=== PATIENT | male | born 1970 | race Caucasian/White ===

== ENCOUNTER 2016-07-31 00:22 | Inpatient (IN) | payer OTHER ==
[~2016-07-31] VITALS: Ht 185.4 cm; Wt 112.6 kg
[2016-07-31] VITALS (10 sets, daily range): BP systolic 121–149; BP diastolic 60–701
--- NOTE | ~2016-07-31 | S ---
[facility] [place] [address] SURGICAL PATH RPT PROCEDURE Name: REYNALDO ALVARADO Room #: 417-I [facility] IN M.R.#: [id number] Admission: 07/31/16 Date of : 68 Discharge: 08/04/16 Report #: [id number] Path Case #: [id number] PATHOLOGY REPORT COLLECTION DATE: 07/31/2016 RECEIVED DATE: 08/01/2016 SUBMITTING PHYS: Dr. Emmett Rader OTHER PHYS: SPECIMEN(S) RECEIVED: A.Ileum * * * * * * * * * * * * FINAL DIAGNOSIS: "Ileum", resection: - Small bowel mucosa, submucosa and muscular wall with transmural reactive changes including edema, mild acute and chronic inflammation, vascular congestion and mesothelial reaction with focal fresh hemorrhage present. - History of incarcerated inguinal hernia. PATHOLOGIST: Leyda Kuhn M.D. REPORT ELECTRONICALLY SIGNED BY: Leyda Kuhn M.D. DATE/TIME: 08/04/2016 23:03 * * * * * * * * * * * * GROSS PATHOLOGY: The specimen is received in formalin labeled "Reynaldo Alvarado, ileum, stitch leung proximal". Received is an oriented segment of small bowel measuring 16.4 cm in length by 2.4 cm in diameter with a suture placed at one margin designating this as the proximal aspect. Both margins are stapled closed. The serosal surface is eubanks-loza to dusky eubanks-loza brown and slightly shaggy in appearance. The attached mesenteric fat measures up to 2.6 cm in thickness. The specimen is opened along the antimesenteric line to reveal pale loza to loza-brown, slightly granular-appearing mucosa with minimal folding and displaying a slight amount of edema. No distinct nodules or lesions are noted grossly. Sectioning through the attached mesenteric fat reveals no readily identifiable lymph nodes. 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 (CAA; 08/03/2016) [address] [address] SURGICAL PATH RPT PROCEDURE Name: REYNALDO ALVARADO Room #: 417-I [facility] IN .R.#: [id number] Admission: 07/31/16 Date of : 68 Discharge: 08/04/16 Report #: [id number] Path Case #: [id number] CLINICAL HISTORY: Incarcerated right inguinal hernia INITIAL CPT CODE(S): A; 48224 Professional services performed by [facility] at [address], [place] [address] Technical services performed by [facility] at [address] [place] [address], [address] [address]. [facility] [address] [place] [address] PHONE: [phone] DIRECTOR: Mike Macias M.D. * * * END OF REPORT * * *
--- NOTE | ~2016-07-31 | H ---
[facility] [place] [address] HISTORY AND PHYSICAL Name: OHREYNALDO Yasemin Room #: 417-I ADM IN .R.#: [id number] Admission: 07/31/16 Attend Phys: Emmett Rader MD, F Discharge: Date of : 68 Report #: [id number] THIS REPORT FOR: //name// CC: FRANK physician/PCP Emmett Rader DATE OF SERVICE: 07/31/2016 CHIEF COMPLAINT: Right groin pain. HISTORY OF PRESENT ILLNESS: This is a 45-year-old male patient who has had difficulty with right groin pain with coughing/straining of the abdomen for quite some time. He was unaware that a right inguinal hernia was present. Yesterday at around 2:00 or 3:00 in the afternoon, he had coughed or sneezed while at rest and developed acute right groin pain. He passed flatus a few hours later, but has not passed a bowel movement or flatus since that time. The bulge in his right groin has not been able to be reduced. He had been seen in the Emergency Room where this was attempted and was unsuccessful. CT of the abdomen and pelvis revealed a large right inguinal hernia with a small-bowel obstruction. Small bowel loops were seen in the hernia with moderate inflammatory changes. There was no evidence for intraabdominal abscess or free air. The patient's white blood cell count was elevated; however, his lactate was normal. The patient reports mild nausea, but no emesis. PAST MEDICAL HISTORY: Denies. PAST SURGICAL HISTORY: Orthopedic operations on his right leg and shoulder. The patient has also undergone an umbilical hernia repair with mesh 3 to 4 years ago. MEDICATIONS: No routine medications at home. ALLERGIES: PENICILLIN. FAMILY HISTORY: Reviewed and noncontributory to this hospitalization. SOCIAL HISTORY: The patient denies use of alcohol, reports marijuana use. 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 REVIEW OF SYSTEMS: As per history of present illness. GENERAL: In addition, the patient denies fever or chills. Denies unintentional weight loss. HEENT: Denies changes in taste, vision, hearing or smell. RESPIRATORY: Denies shortness of breath or asthma. CARDIOVASCULAR: Denies chest pain or palpitations. GASTROINTESTINAL: As per history of present illness. Denies bright red blood [address] [address] HISTORY AND PHYSICAL Name: REYNALDO CASIANO Room #: 417-I [facility] IN [facility].#: [id number] Admission: 07/31/16 Attend Phys: Emmett Rader MD, F Discharge: Date of : 68 Report #: [id number] per rectum. GENITOURINARY: Denies dysuria, urgency, increased urinary frequency or hematuria. MUSCULOSKELETAL: Denies myalgia or arthralgia. Has right lower extremity pain. SKIN AND INTEGUMENTARY: Denies new skin lesions, rashes, or moles. ENDOCRINE: Denies polydipsia or polyuria. NEUROLOGIC: Denies headaches, numbness, or tingling. All other review of systems is negative. PHYSICAL EXAMINATION: VITAL SIGNS: Temperature 36.8, blood pressure 131/60, pulse 79, respirations 16. GENERAL: This is a 45-year-old male patient in no acute distress. HEENT: Atraumatic and normocephalic. NECK: Supple, no appreciable lymphadenopathy. CHEST: Clear. CARDIOVASCULAR: Regular rate and rhythm. ABDOMEN: Soft and slightly distended. A right groin bulge is present that is nonreducible. There is no overlying erythema or edema. He has tenderness to palpation with exam. There was no palpable evidence for a left inguinal hernia. There is no umbilical hernia present. EXTREMITIES: No clubbing or cyanosis; obvious distal right lower extremity previous trauma. NEUROLOGIC: Cranial nerves 2-12 grossly intact. PSYCHIATRIC: Normal mood and affect. SKIN AND INTEGUMENTARY: No acute inflammatory changes, rashes or lesions are present. LABORATORY STUDIES: CBC from earlier this morning shows a white blood cell count of 16.6, hemoglobin 14.7, hematocrit 44.5 and platelets 411. Electrolytes showed sodium of 133, potassium 3.6, chloride 99, CO2 of 27, BUN 14, creatinine 0.8 and glucose 121 with normal liver function tests. Lipase was low. Urinalysis showed trace ketones and 2+ blood. His urobilinogen was greater than 8. RADIOLOGIC STUDIES: CT findings are as noted above. IMPRESSION AND PLAN: This is a 45-year-old reportedly otherwise healthy male patient with an incarcerated right groin hernia with possible strangulation of bowel. His white blood cell count was elevated. However, his white blood cell count was normal. I am unable to reduce the hernia at the bedside despite maneuvers to relax the patient. We discussed the pathophysiology and natural history of inguinal hernias as well as the treatment alternatives and surgical options. The patient will need relatively urgent operative intervention. We will plan for the laparoscopic approach with possible need for bowel resection, possible conversion to an open procedure. The risks, benefits, and expectations [facility] [address] [place] [address] HISTORY AND PHYSICAL Name: REYNALDO CASIANO Room #: 417-I ADM IN .R.#: [id number] Admission: 07/31/16 Attend Phys: Emmett Rader MD, F Discharge: Date of : 68 Report #: [id number] of the operation were discussed in detail with the patient. He expressed understanding and wishes to proceed. He will be taken to the operating room soon. <ELECTRONICALLY SIGNED> By: Emmett Rader MD, FACS 07/31/16 2305 0740 0824 Emmett Rader MD, FACS /nt
--- NOTE | ~2016-07-31 | EKG ---
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 : 1970 Requested By: Prince Tyler Order Number: [id number] MD: Richard Ahsford Measurements Intervals [place] Rate: 86 P: 67 AK: 146 QRS: 49 QRSD: 89 T: 12 QT: 375 QTc: 449 Interpretive Statements Sinus rhythm Probable left atrial enlargement Probable left ventricular hypertrophy Baseline wander in lead(s) I,V1,V2,V3,V4,V5,V6 No previous ECG available for comparison Electronically Signed On 08-04-2016 15:11:16 CDT by Richard Ashford [email or web address] <ELECTRONICALLY SIGNED> By: Richard Ashford MD 08/04/16 1511 1221 1221 Richard Ashford MD /EPI
--- NOTE | ~2016-07-31 | O ---
[facility] [place] [address] OPERATIVE REPORT Name: REYNALDO CASIANO Room #: 417-I [facility] IN M.R.#: [id number] Admission: 07/31/16 Attend Phys: Emmett Rader MD, F Discharge: 08/04/16 Date of : 68 Report #: [id number] THIS REPORT FOR: //name// CC: FRANK physician/PCP Emmett Rader DATE OF SERVICE: 07/31/2016 SURGEON: Emmett Rader MD LARRY CAR OPERATOR: PAM Mills. PREOPERATIVE DIAGNOSES: 1. Incarcerated right groin hernia, possible strangulation. 2. Hepatitis C. POSTOPERATIVE DIAGNOSES: 1. Strangulated indirect right inguinal hernia (strangulated small bowel). 2. Hepatitis C. PROCEDURES: 1. Diagnostic laparoscopy with conversion to open for repair of a strangulated right inguinal hernia with Surgimesh plug and onlay patch. 2. Segmental small bowel resection with [id number] functional end-to-end anastomosis (laparoscopic). ANESTHESIA: General endotracheal anesthesia and local anesthetic. ESTIMATED BLOOD LOSS: 50 mL. SPECIMEN: Proximal ileum. COMPLICATIONS: None appreciated. INDICATIONS FOR PROCEDURE: This 45-year-old male patient who has had difficulty with right groin pain with coughing/straining of the abdomen for the past year or more. He was unaware that a right inguinal hernia was actually present, although he has had these complaints. Yesterday at around 2 or 3 in the afternoon, the patient developed acute right groin pain after coughing or sneezing while at rest. The patient passed flatus a few hours later, but has not passed a bowel movement or flatus since that time and he notes no significant relief of the symptoms, otherwise. The bulge in the patient's right groin has not been able to be reduced by the patient himself. The patient had been seen in the emergency room where a reduction was again attempted, however, this was unsuccessful. A CT of the abdomen and pelvis showed a large right inguinal hernia associated with small-bowel obstruction. Small bowel loops were [facility] [address] [place] [address] OPERATIVE REPORT Name: REYNALDO CASIANO Room #: 417-I [facility] IN .R.#: [id number] Admission: 07/31/16 Attend Phys: Emmett Rader MD, F Discharge: 08/04/16 Date of : 68 Report #: [id number] seen in the hernia with moderate inflammatory changes with no evidence for acute abscess or free intraperitoneal air. The patient's white blood cell count was initially elevated; however, this normalized. The patient reports mild nausea, but no emesis. OPERATIVE FINDINGS: Upon entrance into the patient's abdominal cavity, bowel was seen to be stuck in the right groin. The bowel itself was friable. It was difficult to tell how much bowel was located within the right inguinal hernia. I attempted to reduce the incarcerated bowel; however, this was unsuccessful. Decision was made to convert to an open procedure for repair of the hernia after attempting to reduce the hernia using the HERMANN technique (after scoring and dissecting the peritoneum off the anterior abdominal wall on the right side). After reducing the bowel, the laparoscope was used to visualize the bowel within the abdominal cavity that had been incarcerated within the defect. The bowel was actually found to be strangulated as it was thickened, cyanotic, and did not pink up. It appeared to be ischemic. Decision was made to resect the bowel through a small periumbilical incision (considered laparoscopic). There was no spillage of succuss whatsoever. The bowel did appear to be obstructed as all bowel proximal to what was herniated was distended; the loop of bowel exiting the hernia defect was decompressed. There was no undue tension on the anastomsis. No other significant intraabdominal pathology was identified. At the conclusion of the operation, the sponge, needle, and instrument counts were correct. DESCRIPTION OF PROCEDURE IN DETAIL: After the benefits and risks of the procedure were explained to the patient which include but are not limited to risks of bleeding, infection, postoperative pain, and postoperative expectations, informed consent was obtained. The patient was identified in the preoperative holding area. He was given access as documented in the chart in line with the SCIP protocol. He had also been receiving scheduled antibiotics. The patient was taken to the operating room and he was placed in the supine position. SCDs were placed on the patient's bilateral lower extremities and pneumatic compression was initiated. The patient was then given IV sedation and he was intubated without incident. A time-out was performed to identify the correct patient and procedure after the patient's abdomen was prepped and draped in standard sterile fashion. Local anesthetic was infiltrated into the skin and subcutaneous tissue in the left lateral abdomen where a small transverse incision was made. A 5 mm Visiport was placed intraperitoneally with a 0-degree angled laparoscope. Pneumoperitoneum was then achieved with insufflation of carbon dioxide to 15 mmHg. A 30-degree angled laparoscope was inserted. An infraumbilical 12 mm and right lateral 5-mm port were each placed under direct visualization after local anesthetic was infiltrated into the skin and subcutaneous tissue and appropriately sized incisions were made. Findings are as noted above. It should be noted that the abdomen was entered in this area rather than at the [address] [address] OPERATIVE REPORT Name: REYNALDO CASIANO Room #: 417-I DIS IN [facility]#: [id number] Admission: 07/31/16 Attend Phys: Emmett Rader MD, F Discharge: 08/04/16 Date of : 68 Report #: [id number] umbilicus due to the patient's previous history of umbilical hernia repair with mesh. The bowel was attempted to be reduced from the defect with no success. Firm gentle traction was applied to the bowel on both the efferent and afferent limbs; however, the bowel did not reduce whatsoever. The right lower peritoneum was scored with electrocautery from the anterior superior iliac spine to the midline at the same level. The peritoneum was then dissected off the anterior abdominal wall with blunt dissection and electrocautery. Attempts were then made to reduce the hernia through this. This was unsuccessful. The peritoneum was tacked back up to the anterior abdominal wall with the SecureStrap absorbable fixation device. Decision was made to convert to an open procedure. The right groin was then marked with a skin marker. Local anesthetic was infiltrated into the skin and subcutaneous tissue. A sharp #10 blade scalpel was used to make the transverse inguinal incision. Electrocautery was used to dissect through the subcutaneous tissue down to the Beata's fascia. The dissection continued until the hernia sac was encountered. It should be noted that the right inguinal anatomy was quite obscured from the incarcerated hernia content. The defect was able to be partially reduced. The spermatic cord was encircled with a imelda drain. The indirect inguinal hernia sac was identified and stripped down away from the adjacent spermatic cord. The Surgimesh was inserted into the indirect defect and tacked to the surrounding tissue with interrupted 0 PDS sutures. The onlay patch was then placed such that the medial aspect was sutured to the pubic tubercle. The superior aspect was approximated to the surrounding tissue including the transversalis fascia and transversus abdominis muscle using a running 0 PDS. The crotch of the mesh was cut to accommodate for the spermatic cord. The cord contents had been clearly identified. The inferior aspect of the mesh was then approximated to the shelving edge of the inguinal ligament using a running 0 PDS suture. The tails of the suture were approximated to each other and to the underlying tissue with a simple interrupted 0 PDS suture. The abdominal cavity was then reentered. The reduced bowel did not appear to have become viable and decision was made for a segmental small bowel resection. The incision was extended. Dissection was carried down to the fascia. The fascia was then opened longitudinally. The ischemic bowel was able to be grasped and delivered through the opening. The proximal and distal aspects were stapled off with a blue load ROME stapler. The resected bowel was sent for specimen. Suture marked the proximal aspect. The antimesenteric corners of the mesh were then approximated with a 3-0 PDS suture. The suture was tagged. The antimesenteric corners were excised and a blue load 75 mm ROME stapler was used to create the sapz-fh-[id number] functional end-to-end anastomosis. The common enterotomy was approximated using Allis clamps. A blue load 60 mm TX stapler was used to staple off the common enterotomy. The tissue was excised. The crotch of the anastomosis was sutured with a 3-0 PDS simple interrupted suture [address] [address] OPERATIVE REPORT Name: REYNALDO CASIANO Room #: 417-I [facility] IN M.R.#: [id number] Admission: 07/31/16 Attend Phys: Emmett Rader MD, F Discharge: 08/04/16 Date of : 68 Report #: [id number] to offload tension from the crotch of the anastomosis. The mesentery was closed with a running 3-0 PDS suture as well. Interrupted Lembert sutures were used to imbricate the common enterotomy staple line. There were no exposed red. The anastomosis was palpably patent and there was no tension on the anastomosis whatsoever. The LigaSure Impact device had been used to divide the mesentery after transecting the bowel proximally and distally. The anastomosis was returned to the abdominal cavity. A running 0 PDS suture was then used to close the midline abdominal wall fascia. The suture was tied under direct visualization laparoscopically. There was no incorporation of intraabdominal tissue. After ensuring final hemostasis and that there was no other significant intraabdominal pathology, the abdominal cavity was desufflated and the incisions were closed with interrupted subcuticular 4-0 Monocryl sutures and Dermabond. The right testicle was pexied to the scrotum with three simple interrupted 2-0 Vicryl sutures. Three sutures were placed to eliminate the testicular torsion. What was felt to be identified as the external oblique fascia was then closed over the spermatic cord. Interrupted 3-0 Vicryl sutures were used to approximate the Beata's fascia. A running 4-0 Stratafix suture was used to close the transverse right inguinal skin incision. Dermabond was applied. The patient tolerated the procedure well. He was awakened, extubated, and taken to recovery room in stable condition with no apparent intraoperative complications. <ELECTRONICALLY SIGNED> By: Emmett Rader MD, FACS 08/06/16 1731 [id number] 0259 Emmett Rader MD, FACS /nt
[2016-07-31 00:48] LABS: HEMATOCRIT 44.5 % (42.0-52.0); HEMOGLOBIN 14.7 gm/dL (14.0-18.0); MCH 28.1 pg (26.0-34.0); MCV 85.1 fL (80.0-100.0); PLATELET COUNT 411 thou/uL (150-400); RBC 5.23 mil/uL (4.50-6.00); WBC 16.6 thou/uL (4.0-11.0)
[2016-07-31 00:55] LABS: CALCIUM 9.1 mg/dL (8.5-10.1); CREATININE 0.8 mg/dL (0.7-1.3); POTASSIUM 3.6 mmol/L (3.5-5.1)
[2016-07-31 01:00] LABS: ALBUMIN 3.8 g/dL (3.4-5.0); TOTAL PROTEIN 7.7 g/dL (6.4-8.2)
[2016-07-31 01:14] LABS: MANUAL DIFF YES
[2016-07-31 01:42] LABS: ABSOLUTE NEUTROPHILS 13.6 thou/uL (1.4-8.2); TOTAL CELL COUNT 100
[2016-07-31 06:19] LABS: URINE COLOR YELLOW; URINE GLUCOSE-RANDOM* NEGATIVE (Negative); URINE KETONES TRACE (Negative); URINE PROTEIN (DIPSTICK) NEGATIVE (Negative); URINE SPECIFIC GRAVITY 1.015 (1.003-1.035)
[2016-07-31 06:20] LABS: URINE BILIRUBIN NEGATIVE (Negative); URINE BLOOD 2+ (Negative); URINE UROBILINOGEN >= 8.0 E.U./dl (0.2-1.0)
[2016-07-31 06:23] LABS: CASTS None Seen /LPF (None Seen); CRYSTALS None Seen /LPF (None Seen); SQUAMOUS None Seen /LPF (0-3); URINE RBC 0-2 Rare /HPF (0-2); URINE WBC-REFLEX None Seen /HPF (0-5)
[2016-07-31 06:24] LABS: URINE LEUKOCYTES-REFLEX NEGATIVE (Negative)
[2016-07-31 21:00] LABS: AMP/METHAMP POSITIVE (Negative); BARBITURATES Negative (Negative); BENZODIAZEPINES POSITIVE (Negative); COCAINE Negative (Negative); METHADONE Negative (Negative); OPIATES POSITIVE (Negative); PCP Negative (Negative); THC POSITIVE (Negative)
[2016-08-01] VITALS: BP 139/97
[2016-08-01 04:00] VITALS: BP 120/89
[2016-08-01 07:11] VITALS: BP 151/93
[2016-08-01 16:01] VITALS: BP 144/83
[2016-08-01 20:00] VITALS: BP 166/87
[2016-08-02 04:00] VITALS: BP 157/91
[2016-08-02 07:37] VITALS: BP 153/95
[2016-08-02 15:41] VITALS: BP 168/109
[2016-08-02 20:00] VITALS: BP 150/90
[2016-08-03 04:30] VITALS: BP 150/103
[2016-08-03 07:12] VITALS: BP 146/88
[2016-08-03 16:34] VITALS: BP 151/99
[2016-08-03 20:00] VITALS: BP 160/110
[2016-08-04 04:00] VITALS: BP 160/106
[2016-08-04 07:52] VITALS: BP 175/117
[2016-08-04 11:38] VITALS: BP 160/100
[2016-08-04 16:05] VITALS: BP 156/101
[2016-08-04 20:36] VITALS: BP 171/103
== END 2016-08-04 20:30 | disposition left against medical advice (07) | DRG 331 ==
LOC: ER 00:22 → EROBS 04:26 → 4E 04:39
PROVIDERS: Emergency Medicine; Surgery
PROC: 0YJ54ZZ Inspection of Right Inguinal Region, Percutaneous Endoscopic Approach (ICD-10-PCS; principal; 2016-07-31)
PROC: 0DTB4ZZ Resection of Ileum, Percutaneous Endoscopic Approach (ICD-10-PCS; principal; 2016-07-31)
PROC: 0YU50JZ Supplement Right Inguinal Region with Synthetic Substitute, Open Approach (ICD-10-PCS; principal; 2016-07-31)
DX: K40.30 Unilateral inguinal hernia, with obstruction, without gangrene, not specified as recurrent (principal); R07.89 Other chest pain; F17.210 Nicotine dependence, cigarettes, uncomplicated; I11.0 Hypertensive heart disease with heart failure; I50.9 Heart failure, unspecified; D72.829 Elevated white blood cell count, unspecified; B19.20 Unspecified viral hepatitis C without hepatic coma; F15.10 Other stimulant abuse, uncomplicated; Z53.21 Procedure and treatment not carried out due to patient leaving prior to being seen by health care provider; Z86.19 Personal history of other infectious and parasitic diseases; Z88.0 Allergy status to penicillin; Z71.6 Tobacco abuse counseling
CPT/HCPCS: 10084; 50010; 50093; 50101; 50249; 50411; 50525; 50555; 50558; 50788; 50944; 50984; 51435; 51708; 51712; 52265; 52266; 54118; 56524; 56525; 56526; 56527; 62110; 70005

== ENCOUNTER 2016-09-12 18:04 | Inpatient (IN) | payer OTHER ==
[~2016-09-12] VITALS: Ht 188 cm; Wt 108.6 kg
[2016-09-12 18:44] VITALS: BP 147/81
[2016-09-12 20:13] LABS: ABSOLUTE NEUTROPHILS 12.2 thou/uL (1.4-8.2); BASOPHILS 0.3 % (0.0-2.0); EOSINOPHILS 0.4 % (0.0-3.0); HEMATOCRIT 35.2 % (42.0-52.0); HEMOGLOBIN 11.9 gm/dL (14.0-18.0); LYMPHOCYTES 10.7 % (24.0-44.0); MANUAL DIFF NO; MCH 28.1 pg (26.0-34.0); MCHC 33.9 g/dL (28.0-37.0); MCV 82.7 fL (80.0-100.0); MONOCYTES 8.8 % (1.0-8.0); PLATELET COUNT 316 thou/uL (150-400); POLYS 79.8 % (36.0-66.0); RBC 4.26 mil/uL (4.50-6.00); RDW 14.7 % (10.5-14.5); WBC 15.3 thou/uL (4.0-11.0)
[2016-09-12 20:25] LABS: CALCIUM 9.1 mg/dL (8.5-10.1); CREATININE 0.9 mg/dL (0.7-1.3); POTASSIUM 3.1 mmol/L (3.5-5.1)
[2016-09-12 20:30] LABS: ALBUMIN 2.9 g/dL (3.4-5.0); DIRECT BILIRUBIN 0.1 mg/dL (<0.1-0.3); TOTAL BILIRUBIN 0.4 mg/dL (<0.1-1.0); TOTAL PROTEIN 7.6 g/dL (6.4-8.2)
[2016-09-12 20:38] VITALS: BP 118/70
[2016-09-12 20:40] VITALS: BP 142/65
[2016-09-12 23:23] LABS: URINE BILIRUBIN NEGATIVE (Negative); URINE BLOOD 2+ (Negative); URINE COLOR YELLOW; URINE GLUCOSE-RANDOM* NEGATIVE (Negative); URINE KETONES NEGATIVE (Negative); URINE NITRITE NEGATIVE (Negative); URINE PROTEIN (DIPSTICK) TRACE (Negative); URINE SPECIFIC GRAVITY 1.025 (1.003-1.035)
[2016-09-12 23:35] LABS: CASTS None Seen /LPF (None Seen); SQUAMOUS None Seen /LPF (0-3)
[2016-09-12 23:36] LABS: BACTERIA 1-9 Few /HPF (None Seen); CRYSTALS None Seen /LPF (None Seen); URINE RBC 0-2 Rare /HPF (0-2); URINE WBC 0-5 Rare /HPF (0-5); WBC CLUMPS Rare (None Seen)
[2016-09-13 04:00] VITALS: BP 128/84
[2016-09-13 04:50] LABS: HEMATOCRIT 32.1 % (42.0-52.0); HEMOGLOBIN 10.5 gm/dL (14.0-18.0); MCH 27.5 pg (26.0-34.0); MCHC 32.8 g/dL (28.0-37.0); MCV 84.1 fL (80.0-100.0); RBC 3.81 mil/uL (4.50-6.00); RDW 14.7 % (10.5-14.5); WBC 13.1 thou/uL (4.0-11.0)
[2016-09-13 04:57] LABS: CALCIUM 8.6 mg/dL (8.5-10.1); CREATININE 0.8 mg/dL (0.7-1.3)
[2016-09-13 08:14] VITALS: BP 118/69
[2016-09-13 15:31] VITALS: BP 114/73
[2016-09-13 19:30] VITALS: BP 125/73
[2016-09-14 03:45] LABS: ABSOLUTE NEUTROPHILS 9.5 thou/uL (1.4-8.2); BASOPHILS 0.6 % (0.0-2.0); EOSINOPHILS 1.4 % (0.0-3.0); HEMATOCRIT 31.2 % (42.0-52.0); HEMOGLOBIN 10.2 gm/dL (14.0-18.0); LYMPHOCYTES 17.1 % (24.0-44.0); MCH 27.5 pg (26.0-34.0); MCHC 32.6 g/dL (28.0-37.0); MCV 84.2 fL (80.0-100.0); MONOCYTES 8.7 % (1.0-8.0); PLATELET COUNT 332 thou/uL (150-400); POLYS 72.2 % (36.0-66.0); RDW 14.6 % (10.5-14.5); WBC 13.2 thou/uL (4.0-11.0)
[2016-09-14 03:46] LABS: MANUAL DIFF NO
[2016-09-14 03:54] LABS: CALCIUM 8.5 mg/dL (8.5-10.1); CREATININE 0.7 mg/dL (0.7-1.3); POTASSIUM 3.8 mmol/L (3.5-5.1)
[2016-09-14 08:05] VITALS: BP 116/66
[2016-09-14 13:11] VITALS: BP 116/66
== END 2016-09-14 15:43 | disposition home or self-care (01) | DRG 603 ==
LOC: ER 18:04 → EROBS 20:02 → 5S 20:38
PROVIDERS: Emergency Medicine; Hospitalist; Internal Medicine Endocrinology, Diabetes & Metabolism; Nurse Practitioner Family
DX: L03.115 Cellulitis of right lower limb (principal); E87.6 Hypokalemia; F17.210 Nicotine dependence, cigarettes, uncomplicated; I50.9 Heart failure, unspecified; F12.10 Cannabis abuse, uncomplicated; F15.10 Other stimulant abuse, uncomplicated; Z79.899 Other long term (current) drug therapy; Z87.81 Personal history of (healed) traumatic fracture; Z88.0 Allergy status to penicillin; Z71.51 Drug abuse counseling and surveillance of drug abuser; Z71.6 Tobacco abuse counseling
CPT/HCPCS: 10086